=== PATIENT | male | born 1995 | race Asian ===

== ENCOUNTER 2018-06-10 18:35 | Emergency (ER) | payer OTHER ==
[2018-06-10 20:16] LABS: ABS Basophils 0 10^3/ul (0-0.2); ABS Eosinophils 0 10^3/ul (0-0.6); ABS Lymphocytes 1.4 10^3/ul (1.0-4.8); ABS Monocytes 0.4 10^3/ul (0-0.8); ABS Neutrophils 4.4 10^3/ul (1.5-7.7); ABS Nucleated RBC 0 10^3/ul; Eosinophil % 0.7 %; Hematocrit 48 % (42-52); Lymphocyte % 22.8 %; Mean Corpuscular HGB Conc 34 g/dl (31-36); Mean Corpuscular Hemoglobin 31 pg (27-31); Mean Corpuscular Volume 92 fL (80-94); Mean Platelet Volume 8.1 fL (7.4-10.4); Nucleated Red Blood Cells % 0.1; Platelet Count 256 10^3/ul (150-450); Red Cell Distribution Width 14 % (10.5-15); White Blood Count 6.2 10^3/ul (3.5-10.8)
[2018-06-10] MEDS ORDERED: PROCHLORPERAZINE INJ 5 MG/ML 2 ML VIAL IV ONE (20:30)
[2018-06-10] MEDS ORDERED: diPHENhydraMINE PO* 25 MG PO ONE (20:30)
[2018-06-10] MEDS ORDERED: Ketorolac INJ* 30 MG/ML 1 ML VIAL IV PUSH ONE (20:30)
[2018-06-10 20:32] LABS: EGFR Non-African American 130.2 (>60)
--- NOTE | 2018-06-10 21:54 | ED ---
Headache - HPI Summary HPI Summary: 22-year-old male presents with headache for the past week. He states pain is in the right posterior aspect of his head. Also admits to some blurry vision. He admits to some nausea and vomiting. He denies any dizziness. He states headache is worse in the morning and gets better throughout the day. He has tried ibuprofen without relief. He denies any family or personal history of migraines. 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 He denies any changes in his gait. He denies any nipple discharge. His headaches are intermittent. He states headachces rare in intensity. It is not worse headache of his life. He states he follow-up with [facility] and his CRP was elevated so they recommended MRI. He denies any fevers. No neck stiffness. He denies any back pain. - History Of Current Complaint Chief Complaint: EDHeadache Stated Complaint: HEADACHE Time Seen by Provider: 06/10/18 19:59 - Allergies/Home Medications Allergies/Adverse Reactions: Allergies Allergy/AdvReac Type Severity Reaction Status Date / Time No Known Allergies Allergy Verified 06/10/18 19:08 Home Medications: Home Medications NK [No Home Medications Reported] 06/10/18 [History Confirmed 06/10/18] PMH/Surg Hx/FS Hx/Imm Hx Endocrine/Hematology History: Denies: Hx Anticoagulant Therapy Respiratory History: Denies: Hx Asthma Infectious Disease History: No Infectious Disease History: Denies: Traveled Outside the [place] in Last 30 Days - Family History Known Family History: Negative: Seizure Disorder - Social History Alcohol Use: None Substance Use Type: Reports: None Smoking Status (MU): Never Smoked Tobacco Review of Systems Negative: Fever Positive: Blurred Vision Negative: Chest Pain Negative: Shortness Of Breath Positive: Vomiting, Nausea Positive: Headache All Other Systems Reviewed And Are Negative: Yes Physical Exam Triage Information Reviewed: Yes Vital Signs On Initial Exam: Initial Vitals Temp Pulse Resp BP Pulse Ox 99.9 F 93 16 132/91 98 06/10/18 19:09 06/10/18 19:09 06/10/18 19:09 06/10/18 19:09 06/10/18 19:09 Vital Signs Reviewed: Yes Appearance: Positive: Well-Appearing Skin: Positive: Warm, Dry Head/Face: Positive: Normal Head/Face Inspection Eyes: Positive: Normal, EOMI, CLARENCE, Conjunctiva Clear ENT: Positive: Normal ENT inspection, Pharynx normal, TMs normal Respiratory/Lung Sounds: Positive: Clear to Auscultation, Breath Sounds Present Cardiovascular: Positive: Normal, RRR Abdomen Description: Positive: Nontender, Soft Bowel Sounds: Positive: Present Musculoskeletal: Positive: Normal Neurological: Positive: Sensory/Motor Intact, Alert, Oriented to Person Place, Time, CN Intact II-III, Normal Gait Psychiatric: Positive: Normal Diagnostics - Vital Signs Vital Signs Temp Pulse Resp BP Pulse Ox 06/10/18 19:09 99.9 F 93 16 132/91 98 - Laboratory Lab Results: Lab Results 06/10/18 06/10/18 Range/Units 20:10 20:10 WBC 6.2 (3.5-10.8) 10^3/ul RBC 5.20 (4.00-5.40) 10^6/ul Hgb 16.0 (14.0-18.0) g/dl Hct 48 (42-52) % MCV 92 (80-94) fL MCH 31 (27-31) pg MCHC 34 (31-36) g/dl RDW 14 (10.5-15) % Plt Count 256 (150-450) 10^3/ul MPV 8.1 (7.4-10.4) fL Neut % (Auto) 70.1 % Lymph % (Auto) 22.8 % Conway % (Auto) 5.9 % Eos % (Auto) 0.7 % Baso % (Auto) 0.5 % Absolute Neuts (auto) 4.4 (1.5-7.7) 10^3/ul Absolute Lymphs (auto) 1.4 (1.0-4.8) 10^3/ul Absolute Monos (auto) 0.4 (0-0.8) 10^3/ul Absolute Eos (auto) 0 (0-0.6) 10^3/ul Absolute Basos (auto) 0 (0-0.2) 10^3/ul Absolute Nucleated RBC 0 10^3/ul Nucleated RBC % 0.1 Sodium 136 (135-145) mmol/L Potassium 4.2 (3.5-5.0) mmol/L Chloride 104 (101-111) mmol/L Carbon Dioxide 24 (22-32) mmol/L Anion Gap 8 (2-11) mmol/L BUN 16 (6-24) mg/dL Creatinine 0.75 (0.67-1.17) mg/dL Est GFR ( Amer) 157.6 (>60) Est GFR (Non-Af Amer) 130.2 (>60) BUN/Creatinine Ratio 21.3 H (8-20) Glucose 89 (70-100) mg/dL Calcium 9.3 (8.6-10.3) mg/dL Total Bilirubin 0.40 (0.2-1.0) mg/dL AST 14 (13-39) U/L ALT 10 (7-52) U/L Alkaline Phosphatase 84 (34-104) U/L C-Reactive Protein 1.97 (<8.01) mg/L Total Protein 7.5 (6.4-8.9) g/dL Albumin 4.6 (3.2-5.2) g/dL Globulin 2.9 (2-4) g/dL Albumin/Globulin Ratio 1.6 (1-3) Result Diagrams: 06/10/18 20:10 06/10/18 20:10 Lab Statement: Any lab studies that have been ordered have been reviewed, and results considered in the medical decision making process. - CT brain CT Interpretation Completed By: Radiologist Summary of CT Findings: IMPRESSION: No acute intracranial abnormality. Headache Course/Dx - Course Course Of Treatment: 22-year-old male presents with headache for the past week. He states pain is in the right posterior aspect of his head. Also admits to some blurry vision. He admits to some nausea and vomiting. He denies any dizziness. He states headache is worse in the morning and gets better throughout the day. He has tried ibuprofen without relief. He denies any family or personal history of migraines. 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 He denies any changes in his gait. He denies any nipple discharge. His headaches are intermittent. He states headachces rare in intensity. It is not worse headache of his life. He states he follow-up with [facility] and his CRP was elevated so they recommended MRI. He denies any fevers. No neck stiffness. He denies any back pain. On exam has a normal neuro exam. Is able to walk with steady gait. Discussed clinically is not indicated for MRI at this time. CT brain normal. Labs within normal limits. CRP is normal. discussed case with dr lund. Discussed will give referral to neurology about headaches and to see if need to get an MRI outpatient. Patient understands agrees with plan. - Diagnoses Differential Diagnosis/HQI/PQRI: Migraine, Tension Headache, Viral Syndrome Provider Diagnoses: Headache Discharge - Sign-Out/Discharge Documenting (check all that apply): Patient Departure - Discharge Plan Condition: Good Disposition: HOME Patient Education Materials: General Headache (ED) Referrals: No Primary Care Phys,NOPCP [Primary Care Provider] - Silverio Azar MD [Medical Doctor] - Additional Instructions: follow up with neurology take Tylenol or ibuprofen every 6 hours as needed for pain Return to ED if develop any new or worsening symptoms - Billing Disposition and Condition Condition: GOOD Disposition: Home
[2018-06-10 22:02] VITALS: BP 115/64
== END 2018-06-10 22:01 | disposition home or self-care (01) ==
LOC: ED 18:35
DX: R51 Headache (principal); R11.2 Nausea with vomiting, unspecified; H53.8 Other visual disturbances
CPT/HCPCS: 36415; 70450; 80053; 85025; 86140; 99282